=== PATIENT | male | born 1975 | race Caucasian/White ===

== ENCOUNTER 2017-05-23 19:10 | Emergency (ER) | payer MEDICAID, OTHER ==
[2017-05-23] MEDS: SOD CHLORIDE 0.9% 1,000 ML IV (19:38)
[2017-05-23 19:41] LABS: ADD MAN DIFF? NO
[2017-05-23 19:43] LABS: WHITE BLOOD COUNT 4.9 10^3/ul (4.8-10.8)
[2017-05-23 19:43] LABS: BASOPHIL # 0.1 10^3/ul (0.0-0.1); EOSINOPHILS % 0.4 % (0.0-7.0); HEMATOCRIT 33.7 % (42.0-52.0); HEMOGLOBIN 11.3 g/dl (14.0-18.0); LYMPHOCYTES # 1.7 10^3/ul (0.8-2.9); LYMPHOCYTES % 35.4 % (15.0-51.0); MEAN CORPUSCULAR HEMOGLOBIN 31.1 pg (29.0-33.0); MEAN CORPUSCULAR HGB CONC 33.5 g/dl (32.0-37.0); MEAN CORPUSCULAR VOLUME 92.8 fl (82.0-101.0); MEAN PLATELET VOLUME 9.7 fl (7.4-10.4); MONOCYTE # 0.7 10^3/ul (0.3-0.9); MONOCYTES % 13.3 % (0.0-11.0); NEUTROPHIL # 2.4 10^3/ul (1.6-7.5); NEUTROPHILS % 48.9 % (39.0-77.0); PLATELET COUNT 172 10^3/UL (140-415); RED BLOOD COUNT 3.63 10^6/ul (4.70-6.10); RED CELL DISTRIBUTION WIDTH 15.7 % (11.5-14.5)
[2017-05-23 20:27] LABS: ALANINE AMINOTRANSFERASE 53 IU/L (13-69); ALBUMIN 3.7 g/dl (3.3-4.9); ALBUMIN/GLOBULIN RATIO 1.05; ALKALINE PHOSPHATASE 173 IU/L (42-121); ANION GAP 21 (8-16); ASPARTATE AMINO TRANSFERASE 80 IU/L (15-46); BILIRUBIN,INDIRECT 0.1 mg/dl (0-1.1); BILIRUBIN,TOTAL 0.1 mg/dl (0.2-1.3); BLOOD UREA NITROGEN 3 mg/dl (7-20); CALCIUM 8.6 mg/dl (8.4-10.2); CARBON DIOXIDE 31 mmol/L (21-31); CHLORIDE 104 mmol/L (97-110); CREATININE 0.44 mg/dl (0.61-1.24); GLUCOSE 214 mg/dl (70-220); POTASSIUM 3.5 mmol/L (3.5-5.1); SODIUM 152 mmol/L (135-144); TOTAL PROTEIN 7.2 g/dl (6.1-8.1)
[2017-05-23] MEDS ORDERED: METHOCARBAMOL 750 MG TAB PO (22:00)
[2017-05-23] MEDS: KETOROLAC 60 MG INJ IM (22:01)
== END 2017-05-24 10:59 | disposition home or self-care (01) ==
LOC: E/R 19:10
DX: F10.920 Alcohol use, unspecified with intoxication, uncomplicated (principal); R40.2142 Coma scale, eyes open, spontaneous, at arrival to emergency department; R40.2352 Coma scale, best motor response, localizes pain, at arrival to emergency department; R40.2212 Coma scale, best verbal response, none, at arrival to emergency department
CPT/HCPCS: 36415; 70450; 80053; 80306; 85025; 96360; 99285-25